=== PATIENT | male | born 1995 | race Caucasian/White ===

== ENCOUNTER 2024-11-15 07:55 | Emergency (ER) | payer SELFPAY ==
[~2024-11-15] VITALS: Ht 165.1 cm; Wt 68.0 kg
[2024-11-15 07:57] VITALS: O2SAT 96
[2024-11-15 08:37] LABS: BASOPHILS % 0.5 % (0.0-2.0); EOSINOPHILS % 0.6 % (0.0-5.0); HEMATOCRIT. 47.7 % (42.0-52.0); HEMOGLOBIN. 16.0 g/dL (14.0-18.0); LYMPHOCYTES % 30.9 % (20.0-50.0); MEAN PLATELET VOLUME 8.4 fl (7.4-10.4); MONOCYTES % 4.4 % (2.0-8.0); NEUTROPHILS % 63.6 % (40.0-76.0); PLATELET 278 x1000/uL (130-400); RED BLOOD CELL COUNT 5.35 mill/uL (4.7-6.1); RED CELL DISTRIBUTION WIDTH 13.3 % (11.6-14.6)
[2024-11-15 08:51] LABS: CREATININE 0.8 mg/dL (0.6-1.3)
[2024-11-15 08:52] LABS: ETHANOL BLOOD 253 mg/dL (<10); UREA NITROGEN BLOOD 11 mg/dL (9-23)
[2024-11-15 11:04] VITALS: BP 108/67; PULSE 92; RESP 16; TEMP 37; O2SAT 100
== END 2024-11-15 11:06 | disposition home or self-care (01) ==
LOC: ER 08:01
DX: F10.129 Alcohol abuse with intoxication, unspecified (principal); R07.9 Chest pain, unspecified; Y90.8 Blood alcohol level of 240 mg/100 ml or more
CPT/HCPCS: 36415; 80048; 80320; 85025; 93005; 99284; G0480